=== PATIENT | female | born 1950 | race Caucasian/White ===

== ENCOUNTER 2022-09-30 06:46 | Day surgery (SDC) | payer MEDICARE ==
[2022-09-29 09:35] VITALS: BMI 23.6
[~2022-09-30 06:46] MED LIST: EPINEPHrine 0.3 MG in Ophthalmic Irrigation Solution 500 ML IRR SCH; Midazolam HCl 2 mg/2 ml Vial ONE; fentaNYL 50 mcg/mL 1 mL Vial ONE
[2022-09-30] MEDS ORDERED: Phenylephrine 2.5% Ophth Soln 5 ML BOT ONE (07:32)
[2022-09-30] MEDS ORDERED: Cyclopentolate 1% Opth Drop 2 ML BOT ONE (07:32)
[2022-09-30] MEDS ORDERED: Maxitrol 0.1% Opth Oint 3.5 GM TUBE ONE (08:44)
[2022-09-30] MEDS ORDERED: Bupivacaine 0.75% 10 ML VIAL ONE (08:44)
[2022-09-30] MEDS ORDERED: Lidocaine 4% PF 5 ML AMP ONE (08:44)
[2022-09-30] MEDS ORDERED: Triamcinolone 40 MG/ML VIAL ONE (08:44)
[2022-09-30] MEDS ORDERED: Lidocaine 1% PF 5 ML VIAL ONE (08:44)
[2022-09-30] MEDS ORDERED: CEFAZOLIN 1 GM VIAL ONE (08:44)
[2022-09-30] MEDS ORDERED: PROPOFOL 200 MG/20 ML VIAL ONE (08:44)
[2022-09-30] MEDS ORDERED: Indocyanine Green 25 MG/10 ML VIAL ONE (08:44)
== END 2022-09-30 10:00 | disposition home or self-care (01) ==
LOC: SDC 06:46
PROVIDERS: ATTEND Ophthalmology Retina Specialist
PROC: 08T43ZZ Resection of Right Vitreous, Percutaneous Approach (ICD-10-PCS; principal; 2022-09-30)
PROC: 08NE3ZZ Release Right Retina, Percutaneous Approach (ICD-10-PCS; 2022-09-30)
DX: H35.341 Macular cyst, hole, or pseudohole, right eye (principal); Z79.890 Hormone replacement therapy; Z88.2 Allergy status to sulfonamides; Z98.42 Cataract extraction status, left eye
CPT/HCPCS: 67042; J3010; 67025; J0171; J0690; J2250; J2704; J3301; J3490